=== PATIENT | male | born 1990 | race African-American/Black ===

== ENCOUNTER 2018-05-17 11:49 | Emergency (ER) | payer OTHER ==
--- NOTE | 2018-05-17 13:07 | ER Document Report ---
ED Allergic Reaction - General Chief Complaint: Allergic Reaction Stated Complaint: POSSIBLE ALLERGIC REACTION Time Seen by Provider: 05/17/18 12:08 - HPI Notes: Patient is a 27-year-old male that presents to the emergency department for chief complaint of allergic reaction. About 2 hours ago patient was bit by ants on his left leg and right arm. He states that he had significant swelling of the right arm and started to hyperventilate. He has a history of allergy to shellfish and bee stings but has never had issues with aunts. After calling EMS because of his shortness of breath he received epinephrine, Benadryl, Pepcid and Solu-Medrol. Currently patient states he feels significantly better. His shortness of breath is completely resolved. He denied any throat swelling. He denies history of anaphylactic reaction in the past. Patient currently only feels some itching in the left arm. Past Medical History: Negative Past Surgical History: Negative Social History: Denies drugs alcohol or tobacco Family History: Reviewed and noncontributory for presenting illness Allergies: Reviewed, see documented allergy list. REVIEW OF SYSTEMS: CONSTITUTIONAL : No fever No chills No diaphoresis No recent illness EENT: No vision changes No congestion No sore throat CARDIOVASCULAR: No chest pain No palpitations RESPIRATORY: No shortness of breath No cough No difficulty breathing GASTROINTESTINAL: No abdominal pain No nausea No vomiting No diarrhea GENITOURINARY: No dysuria No hematuria No difficulty urinating MUSCULOSKELETAL: No back pain No leg pain No arm pain SKIN: rashes No lesions LYMPHATIC: No swollen, enlarged glands. NEUROLOGICAL: No lightheadedness No headache No weakness No paresthesias PSYCHIATRIC: No anxiety No depression PHYSICAL EXAMINATION: Vital signs reviewed, nursing noted reviewed. GENERAL: Well-appearing, well-nourished and in no acute distress. HEAD: Atraumatic, normocephalic. EYES: Eyes appear normal, extraocular movements intact, sclera anicteric, conjunctiva are normal. ENT: nares patent, oropharynx clear without exudates. Moist mucous membranes. NECK: Normal range of motion, supple without lymphadenopathy LUNGS: Breath sounds clear to auscultation bilaterally and equal. No wheezes rales or rhonchi. HEART: Regular rate and rhythm without murmurs ABDOMEN: Soft, nontender, normoactive bowel sounds. No rebound, guarding, or rigidity. No masses appreciated. EXTREMITIES: Nontender, good range of motion, no pitting or edema. NEUROLOGICAL: No focal neurological deficits. Moves all extremities spontaneously Motor and sensory grossly intact on exam. PSYCH: Normal mood, normal affect. SKIN: Warm, Dry, normal turgor,. No urticaria. 2 erythematous indurated bites to right forearm consistent with ant sting - Related Data Allergies/Adverse Reactions: shellfish derived Allergy (Verified 05/17/18 11:58) ants Allergy (Uncoded 05/17/18 11:58) Past Medical History - Social History Smoking Status: Current Every Day Smoker Family History: Reviewed & Not Pertinent Patient has suicidal ideation: No Patient has homicidal ideation: No Renal/ Medical History: Denies: Hx Peritoneal Dialysis Past Surgical History: Reports: Hx Oral Surgery Physical Exam - Vital signs Vitals: Temp Pulse Resp BP Pulse Ox 98.7 F 92 20 131/86 H 97 05/17/18 11:58 05/17/18 11:58 05/17/18 11:58 05/17/18 11:58 05/17/18 11:58 Course - Re-evaluation Re-evalutation: 05/17/18 13:04 Vitals reviewed. Nursing notes reviewed. Patient is in no acute distress. He has no oral pharyngeal swelling or wheezing. Patient was given epinephrine by EMS but did not have any lightheadedness, throat swelling or wheezing prior to receiving the epinephrine. He has no history of anaphylactic reaction in the past. Patient currently states he is feeling much better. His itching is almost completely resolved. He has 2 small insect stings on his right forearm with no hives. Patient will continue taking Benadryl today as needed for itching. He will be given a prescription for EpiPen. He was counseled on indications for EpiPen and return to the emergency room. He will be discharged in stable condition. - Vital Signs Vital signs: Temp Pulse Resp BP Pulse Ox 98.7 F 92 20 131/86 H 97 05/17/18 11:58 05/17/18 11:58 05/17/18 11:58 05/17/18 11:58 05/17/18 11:58 Discharge - Discharge Clinical Impression: Fire ant sting Qualifiers: Encounter type: initial encounter Injury intent: accidental or unintentional Qualified Code(s): T63.421A - Toxic effect of venom of ants, accidental ( unintentional), initial encounter Allergic reaction Qualifiers: Encounter type: initial encounter Qualified Code(s): T78.40XA - Allergy, unspecified, initial encounter Condition: Stable Disposition: HOME, SELF-CARE Instructions: Acute Allergic Reaction ([facility]), Epinephrine Additional Instructions: Please return to the emergency department if you have any worsening, or concern of your symptoms. Please return to the emergency department if you develop chest pain, difficulty breathing, severe abdominal pain, or ongoing vomiting. Please follow-up with your primary care physician in 2-3 days and any other recommended physicians. If prescribed, take all medications as directed. If you have any questions or concerns do not hesitate to return the emergency department for evaluation. Take Benadryl today as directed on the label for itching Prescriptions: Epinephrine [Epipen] 0.3 mg IJ ASDIR PRN #2 auto.injct PRN Reason: Forms: Return to Work
[2018-05-17 13:17] VITALS: BP 134/82
== END 2018-05-17 13:17 | disposition home or self-care (01) ==
LOC: ER 11:49
DX: T63.421A Toxic effect of venom of ants, accidental (unintentional), initial encounter (principal); Z91.013 Allergy to seafood; Z72.0 Tobacco use
CPT/HCPCS: 99283